=== PATIENT | female | born 1980 | race Caucasian/White ===

== ENCOUNTER 2023-04-17 21:02 | Emergency (ER) | payer MEDICAID ==
[~2023-04-17] VITALS: Ht 157.5 cm; Wt 72.6 kg
[2023-04-17 21:07] VITALS: BP_SYST 126; PULSE 96; RESP 16; TEMP 97.4; O2SAT 98
[2023-04-17] MEDS ORDERED: NAPR-688 PO (23:22)
[2023-04-17] MEDS ORDERED: OLOP5DRO24 EACH EYE (23:22)
[2023-04-17 23:36] VITALS: BP_SYST 125; PULSE 92; RESP 16; TEMP 97.5; O2SAT 97
== END 2023-04-17 23:36 | disposition home or self-care (01) ==
LOC: SED 21:02
DX: H57.89 Other specified disorders of eye and adnexa (principal); Z53.21 Procedure and treatment not carried out due to patient leaving prior to being seen by health care provider
CPT/HCPCS: 99281